=== PATIENT | female | born 1945 | race Caucasian/White ===

== ENCOUNTER 2017-11-08 14:18 | Emergency (ER) | payer MEDICARE, OTHER ==
[~2017-11-08] VITALS: Ht 154.9 cm; Wt 42.0 kg
[2017-11-08 14:24] VITALS: BP 149/73
[2017-11-08] MEDS ORDERED: ALPR0.254 PO ×2 (14:32→14:46)
[2017-11-08] MEDS ORDERED: ASPI-496 PO (14:33)
[2017-11-08] MEDS ORDERED: BISA5TAB5 PO (14:33)
[2017-11-08] MEDS ORDERED: ATEN25TA PO (14:33)
[2017-11-08] MEDS ORDERED: MULT1TAB9 PO (14:34)
[2017-11-08] MEDS ORDERED: FLUT9.9S NAS (14:36)
[2017-11-08] MEDS ORDERED: FLUO10TA PO (14:38)
[2017-11-08] MEDS ORDERED: FLUO10CA7 PO (14:38)
[2017-11-08] MEDS ORDERED: MIRT7.5T8 PO (14:39)
[2017-11-08] MEDS ORDERED: MULT-2 PO (14:40)
[2017-11-08] MEDS ORDERED: METH5TAB4 PO (14:42)
[2017-11-08] MEDS ORDERED: OMEP20TA62 PO (14:42)
[2017-11-08] MEDS ORDERED: SODI1TAB PO (14:43)
[2017-11-08] MEDS ORDERED: [UNRECOGNIZED DRUG - CODE] PO (14:45)
[2017-11-08] MEDS ORDERED: SODIUM CHLORIDE FLUSH 10ML SYR IVF ONE (15:00)
[2017-11-08] MEDS ORDERED: SODIUM CHLORIDE 0.9% 1,000ML IVBOLUS ONE ×2 (15:00→16:00)
[2017-11-08 15:03] LABS: BASOPHILS # (AUTO) 0.02 x10^3/uL (0-0.1); BASOPHILS % (AUTO) 0 % (0-1); EOSINOPHILS # (AUTO) 0.05 x10^3/uL (0-0.4); EOSINOPHILS % (AUTO) 1 % (1-7); LYMPHOCYTES # (AUTO) 1.08 x10^3/uL (1-3.4); LYMPHOCYTES % (AUTO) 19 % (22-44); MD NO; MEAN CORPUSCULAR HEMOGLOBIN 30.1 pg (27.0-34.8); MEAN CORPUSCULAR HGB CONC 34.1 g/dL (32.4-35.8); MEAN CORPUSCULAR VOLUME 88.5 fL (80-100); MEAN PLATELET VOLUME 6.9 fL (7.4-10.4); MONOCYTES # (AUTO) 0.41 x10^3/uL (0.2-0.8); MONOCYTES % (AUTO) 7 % (2-9); NEUTROPHILS # (AUTO) 4.16 x10^3/uL (1.8-6.8); NEUTROPHILS % (AUTO) 73 % (42-75); PLATELET COUNT 373 x10^3/uL (130-400); RED BLOOD COUNT 4.76 x10^6/uL (3.82-5.3); RED CELL DISTRIBUTION WIDTH 14.4 % (9.6-15.2)
[2017-11-08 15:12] LABS: ALANINE AMINOTRANSFERASE 30 U/L (12-78); ALBUMIN 3.8 g/dL (3.4-5.0); ANION GAP 13 mmol/L (5-15); CALCIUM 9.1 mg/dL (8.5-10.1); CHLORIDE 103 mmol/L (98-107)
[2017-11-08 15:15] LABS: ALKALINE PHOSPHATASE 138 U/L (45-117); BILIRUBIN,TOTAL 1.4 mg/dL (0.2-1.0); CREATININE 0.61 mg/dL (0.55-1.02); TOTAL PROTEIN 7.2 g/dL (6.4-8.2)
[2017-11-08 16:36] LABS: MICROSCOPIC NOT IND
[2017-11-08 16:40] LABS: CULTURE INDICATED? NO
== END 2017-11-08 18:26 | disposition home or self-care (01) ==
LOC: ED 15:39
DX: F03.90 Unspecified dementia, unspecified severity, without behavioral disturbance, psychotic disturbance, mood disturbance, and anxiety (principal); R62.7 Adult failure to thrive; I10 Essential (primary) hypertension
CPT/HCPCS: 36415; 74021; 80053; 81003; 83690; 85025; 96360; 96361; 99285; J7030